=== PATIENT | female | born 1970 | race Caucasian/White ===

== ENCOUNTER 2021-10-31 16:26 | Inpatient (IN) | payer MEDICAID ==
[~2021-10-31] VITALS: Ht 165.1 cm; Wt 84.4 kg
[2021-10-31] MEDS ORDERED: ONDANSETRON 4 MG/2 ML VIAL ONE ×2 (16:43→20:40)
[2021-10-31] MEDS ORDERED: MORPHINE SULFATE 4 MG/1 ML DISP.SYRIN ONE ×2 (16:43→17:58)
[2021-10-31] MEDS ORDERED: IV NORMAL SALINE 1000 ML BAG IV ONE (16:45)
[2021-10-31] MEDS ORDERED: ONDANSETRON 4 MG/2 ML VIAL IV ONE ×2 (16:45→20:00)
[2021-10-31] MEDS ORDERED: MORPHINE SULFATE 2 MG/1 ML DISP.SYRIN IV ONE (16:45)
--- NOTE | 2021-10-31 16:45 | NUR ---
Placed pt on NPO. Pt is aware and agrees.
[2021-10-31 16:54] LABS: HEMATOCRIT 43.5 % (31.2-41.9); MEAN CORPUSCULAR HEMOGLOBIN 29.3 uug (24.7-32.8); MEAN CORPUSCULAR VOLUME 88.1 fL (75.5-95.3); PLATELET COUNT (AUTO) 291 K/uL (179-408)
[2021-10-31 17:05] LABS: CARBON DIOXIDE 27 mmol/L (21-32); CHLORIDE 104 mmol/L (98-107); CREATININE 0.9 mg/dL (0.6-1.3); GLUCOSE 176 mg/dL (74-106); POTASSIUM 3.6 mmol/L (3.5-5.1); UREA NITROGEN, BLOOD 9 mg/dL (7-18)
--- NOTE | 2021-10-31 17:11 | NUR ---
Patient is resting comfortably in bed with eyes closed, NAD noted.
[2021-10-31 17:21] LABS: ALANINE AMINOTRANSFERASE 23 U/L (14-59); ALKALINE PHOSPHATASE 77 U/L (50-136); ASPARTATE AMINOTRANSFERASE 19 U/L (15-37); BILIRUBIN,DIRECT 0.1 mg/dL (0.0-0.2); BILIRUBIN,TOTAL 0.3 mg/dL (0.2-1.0)
[2021-10-31 17:25] LABS: LIPASE 10304 U/L (73-393)
--- NOTE | 2021-10-31 17:34 | NUR ---
Pt back from CT,denies N/V.
[2021-10-31 18:08] LABS: ETHANOL < 3 MG/DL (0-0)
[2021-10-31] MEDS ORDERED: MORPHINE SULFATE 4 MG/1 ML DISP.SYRIN IV ONE (18:15)
--- NOTE | 2021-10-31 18:20 | NUR ---
Jennifer Jerez from [facility], spoke to Dr sutherland for possible transfer to [facility].
--- NOTE | 2021-10-31 18:55 | NUR ---
Pt's signed consent for transfer, placed in the chart.
--- NOTE | 2021-10-31 19:10 | NUR ---
Received very thorough and complete report from JOANA Krause RN using SBAR method. All questions answered. Nothing pending on pt. Pt awaiting transfer to [facility] for confirmed dx of Pancreatitis. Pt otherwise healthy and lives a very healthy life. Takes no meds. States that her PMD said she has high cholesterol and that she needs to reduce her LDLs to prevent serious complications. Other than that, she has no med issues. AAOx4 with good color and appearance, afebrile at 98.0 oral. VSS, PE wnl, NAD, 104/57 at shift change, 98%RA, 63bpm NSR no ectopy, RRR, normal s1s2 no m/g/r. Good distal pulses x4 ext, good stock blender strength bilat. Complaining of mild pain rapidly increasing to moderate pain. No nausea at this time but was nauseated earlier. No s/sx of distress present. Pt resting in pos of comfort.
[2021-10-31] MEDS ORDERED: HYDROMORPHONE 1 MG/1 ML DISP.SYRIN IV ONE (20:00)
[2021-10-31] MEDS ORDERED: IV NS 1000 ML 1,000 ML IV ONE (20:00)
[2021-10-31] MEDS ORDERED: HYDROMORPHONE 1 MG/1 ML DISP.SYRIN ONE (20:17)
[2021-10-31] MEDS ORDERED: PROCHLORPERAZINE EDISYLATE 10 MG/2 ML VIAL ONE (21:10)
[2021-10-31] MEDS ORDERED: PROCHLORPERAZINE EDISYLATE 10 MG/2 ML VIAL IV ONE ×2 (21:15→22:45)
--- NOTE | 2021-10-31 21:56 | NUR ---
[facility] [employer] MANAGER, WAITING FOR BRENDA JAIME DNP TO CALL BACK.
--- NOTE | 2021-10-31 22:09 | NUR ---
Calling report to 3rd floor MS for pt after [facility] could not make room for her. Pt sleeping comfortably is audible snorring VSS 116/65, 99%RA, 65bpm, 16rpm. was placed on hold for 5 min. will call again in 5 min.
--- NOTE | 2021-10-31 22:24 | NUR ---
BRENDA JAIME FROM [facility] HAS NOT CALLED BACK. REPAGE YENI AGUERO AT THIS TIME.
--- NOTE | 2021-10-31 22:26 | NUR ---
Thorough report given to staff educator using SBAR method. All questions answered. Green light given to transport pt to 3rd floor. UA sample collected before hand, EKG performed during day shift. Pt will be tranported on gurney.
--- NOTE | 2021-10-31 22:31 | NUR ---
DR RO SPEAKING WITH BRENDA JAIME DNP.
--- NOTE | 2021-10-31 22:35 | NUR ---
Pt transported to room 319 via [facility], belongings list completed, all possessions accounted for. VSS, NAD, AAOx4. Pt very greatful and thankful for services rendered and very happy of care she received in the ED. Pt walked over to bed with stead gait; placed in pos of comfort. Bed dropped, rails up, call light given to pt, orient to room and controls of bed. [employer] MACHINE MECHANIC at bedside for intake. No complaints of N/V at the moment with pain at a 1/10. No s/sxof distress present.
[2021-10-31 22:43] LABS: *BILIRUBIN,URIN NEGATIVE (NEGATIVE); *BLOOD, URINE NEGATIVE (NEGATIVE); *COLOR,URINE YELLOW (YELLOW); *KETONES,URINE 3+ (NEGATIVE); *UROBILINOGEN,URINE 0.2 E.U./dl (NORMAL); LEUKOCYTE ESTERASE ,URINE NEGATIVE (NEGATIVE); NITRITE, URINE NEGATIVE (NEGATIVE); PH,URINE 6.5 (5.0-8.0); UGLUCOSE NEGATIVE (NEGATIVE)
[2021-10-31 22:45] LABS: *CLARITY,URINE HAZY (CLEAR)
[2021-10-31 22:49] LABS: BACTERIA,URINE NONE SEEN /HPF (NONE SEEN); MUCUS,URINE MODERATE /LPF (0-FEW); RBC,URINE NONE SEEN /HPF (0-3); SQUAMOUS EPITHELIAL CELL,UR FEW /HPF (NONE SEEN); WBC,URINE 0-3 /HPF (0-3)
[2021-11-01] VITALS: BP 96/52
[2021-11-01] MEDS ORDERED: ONDANSETRON 4 MG/2 ML VIAL IV PRN
[2021-11-01] MEDS ORDERED: REMEDY ESSENTIAL ZINC PASTE 113 GM TP PRN
[2021-11-01] MEDS ORDERED: METOCLOPRAMIDE HCL 10 MG/2 ML VIAL IV PRN
[2021-11-01] MEDS ORDERED: HYDROMORPHONE 1 MG/1 ML DISP.SYRIN IV PRN
[2021-11-01] MEDS ORDERED: IV 1/2NS 1000 ML 1,000 ML IV PRN
--- NOTE | 2021-11-01 | NUR ---
Received patient from ER, alert, and oriented x4, no shortness of breath, no complaint of pain at this time, no complaint of nausea. Able to ambulate from gurney to bed with few steps, no weakness of both upper and lower extremities noted. Routine admission care done. Compazine IV at [facility] ER order not given in the unit.
--- NOTE | 2021-11-01 00:25 | NUR ---
IV access at left hand with redness around the site, patient complaint of pain at IV site, removed and inserted at right forearm G-22. IV 0. 45 NS 1L at 75cc/hr started as ordered.
[2021-11-01] MEDS: ENOXAPARIN SODIUM 40 MG/0.4 ML DISP.SYRIN SQ SCH ×2 (00:30→20:33)
--- NOTE | 2021-11-01 00:30 | NUR ---
Instructed on NPO as ordered.
[2021-11-01 04:03] VITALS: BP 93/45
[2021-11-01 06:09] LABS: HEMATOCRIT 37.3 % (31.2-41.9); MEAN CORPUSCULAR HEMOGLOBIN 29.7 uug (24.7-32.8); MEAN CORPUSCULAR VOLUME 88.5 fL (75.5-95.3); PLATELET COUNT (AUTO) 224 K/uL (179-408)
[2021-11-01 06:32] LABS: CREATININE 0.8 mg/dL (0.6-1.3); MAGNESIUM 1.8 mg/dL (1.8-2.4); PHOSPHOROUS 3.1 mg/dL (2.5-4.9); POTASSIUM 3.5 mmol/L (3.5-5.1)
--- NOTE | 2021-11-01 06:37 | NUR ---
Patient slept intermittently, patient states she feels better, no vomiting noted, abdominal pain present when abdomen is being pressed. No shortness of breath. For continuity care, vital signs stable.
--- NOTE | 2021-11-01 08:00 | NUR ---
RESTING IN BED DENIES ACUTE PAIN, NAUSEA AND VOMITING. KEPT NPO TILL FURTHER ORDERS. IVF MAINTAINED
[2021-11-01] MEDS: PANTOPRAZOLE SODIUM 40 MG VIAL IV SCH (08:12)
--- NOTE | 2021-11-01 12:00 | NUR ---
SEEN BY HOSPITALIST FOR FOLLOW-UP, WILL START ON CLEAR LIQUID
[2021-11-01 12:12] VITALS: BP 121/54
--- NOTE | 2021-11-01 14:42 | NUR ---
STARTED ON CLEAR LIQUID NO VOMITING OR ACUTE PAIN NOTED. CONTINUE IVF
[2021-11-01 16:18] VITALS: BP 126/68
--- NOTE | 2021-11-01 17:51 | NUR ---
PATIENT TOLERATING CLEAR LIQUID, DENIES N/V, ABDOMINAL PAIN. CONTINUE TO OBSERVE
[2021-11-01 20:54] VITALS: BP 119/52
--- NOTE | 2021-11-02 02:24 | NUR ---
AAOx4 Ambulatory. VSS. Needs attended. Denies any pain nor any discomfort. Will monitor patient. IVF's infusing via right arm. Continent of bowel and bladder.
[2021-11-02 04:20] VITALS: BP 119/56
--- NOTE | 2021-11-02 08:00 | NUR ---
AWAKE ALERT AND PLEASANT DENIES PAIN OR SOB. TOLERATING CLEAR LIQUID WELL NO N/V. OBSERVED
[2021-11-02] MEDS: PANTOPRAZOLE SODIUM 40 MG VIAL IV SCH (08:49)
[2021-11-02 11:53] VITALS: BP 122/66
[2021-11-02] MEDS ORDERED: ATOR10TA PO (13:59)
--- NOTE | 2021-11-02 14:30 | NUR ---
PATIENT IS DISCHARGE. VITALS IS STABLE. DISCHARGE INSTRUCTION WAS GIVEN TO PATIENT. EDUCATIONAL MATERIAL PROVIDED REGARDING. PATIENT WILL GO HOME USING THEIR PRIVATE CAR.
--- NOTE | 2021-11-02 15:00 | NUR ---
PATIENT IV ACCESS REMOVED. NO REDNESS/SWELLING ON IV SITE. ALL BELONGINGS IS ACCOUNTED FOR. PATIENTS IS ESCORTED TO THEIR CAR TO GO HOME.
[2021-11-03] MEDS ORDERED: PANTOPRAZOLE SODIUM 40 MG TABLET.DR PO SCH (07:00)
== END 2021-11-02 15:00 | disposition home or self-care (01) | DRG 282 ==
LOC: ER 16:30 → MEDSURG3 23:02
PROVIDERS: ADMIT Internal Medicine; ATTEND Internal Medicine
DX: K85.90 Acute pancreatitis without necrosis or infection, unspecified (principal); D72.828 Other elevated white blood cell count; E66.9 Obesity, unspecified; E78.5 Hyperlipidemia, unspecified; Z20.822 Contact with and (suspected) exposure to COVID-19; K44.9 Diaphragmatic hernia without obstruction or gangrene; Z68.31 Body mass index [BMI] 31.0-31.9, adult
CPT/HCPCS: 36415; 71045; 83690; 83735; 84100; 84478; 84484; 85025; 93005; A4663; C9113; G0378; G0480; J0780; J1170; J1650; J2270; J2405; J7040